=== PATIENT | male | born 1950 | race Caucasian/White ===

== ENCOUNTER 2016-09-23 05:41 | Inpatient (IN) | payer OTHER ==
[2016-09-08 10:32] LABS: ADD DIFF? NO; ADD MORPH? NO; ADD SCAN? NO; ATYPICAL LYMPHOCYTE FLAG 30 (0-99); FRAGMENT RBC FLAG 0 (0-99); HEMATOCRIT 44.2 % (40.0-51.0); HEMOGLOBIN 15.4 g/dL (13.7-17.5); LEFT SHIFT FLG 0 (0-99); LIPEMIA HEMOLYSIS FLAG 90 (0-99); MEAN CELL HEMOGLOBIN 32.3 pg (27.9-34.1); MEAN CELL HEMOGLOBIN CONCENTR. 34.8 g/dL (32.4-36.7); MEAN CELL VOLUME 92.7 fL (81.5-99.8); MEAN PLATELET VOLUME 9.2 fL (8.7-11.7); PLATELET CLUMPS FLAG 0 (0-99); PLATELET COUNT 232 10^3/uL (150-400); RED BLOOD CELL COUNT 4.77 10^6/uL (4.40-6.38); RED CELL DISTRIBUTION WIDTH 12.7 % (11.5-15.2)
[2016-09-08 11:10] LABS: ANION GAP 11 mEq/L (8-16); CALCIUM 9.5 mg/dL (8.5-10.4); CARBON DIOXIDE 25 mEq/l (22-31); CHLORIDE 102 mEq/L (97-110); CREATININE 0.9 mg/dL (0.7-1.3); GLOMERULAR FILTRATION RATE > 60; GLUCOSE 135 mg/dL (70-100); POTASSIUM 3.9 mEq/L (3.5-5.2); SODIUM 138 mEq/L (134-144)
--- NOTE | 2016-09-21 10:14 | GHP ---
[f rep st] PREOP HISTORY AND PHYSICAL DATE OF ADMISSION: 09/23/2016 ADMISSION DIAGNOSIS: Severe right knee degenerative arthritis. HISTORY OF PRESENT ILLNESS: The patient is a 66-year-old male who will be admitted for a right total knee arthroplasty. He has had progressive pain in the right knee over the past several years. He remembers having issues with this knee almost 10 or 12 years ago. He has had 2 previous arthroscopic procedures of the right knee, as well as a left knee ACL reconstruction. The patient's pain has progressed to the point where he is now having daily pain and pain at night. He is using meloxicam as needed, which has become ineffective. His activities have become severely limited, although, he is still trying to work through the pain. He reports stiffness after prolonged sitting. He has also had several previous cortisone injections and Visco supplementation and PRP injections to the right knee without efficacy. Because of his progressive pain and advanced arthritis, he has elected to proceed with a right total knee arthroplasty. PAST MEDICAL HISTORY: Pertinent for hypertension, sleep apnea, depression. No history of MRSA, CAD, NM, DVT, or PE. CURRENT MEDICATIONS: Amlodipine 10 mg, clonazepam 0.5 mg, Flomax 0.4 mg, hydrochlorothiazide 25 mg, venlafaxine 75 mg, vitamin B12. MEDICATION ALLERGIES: He has no known drug allergies. SOCIAL HISTORY: He is retired. Nonsmoker. Moderate alcohol intake. He is . FAMILY HISTORY: Noncontributory. PHYSICAL EXAMINATION: GENERAL: He is a healthy-appearing 66-year-old male. VITAL: Height 5 feet 10 inches tall, weight 210 pounds. BMI 30.1. Blood pressure 134/80. HEENT. Head: Normocephalic, atraumatic. Eyes: PERRLA. Conjunctivae and sclerae are clear. Mouth: He has good oral hygiene without any loose teeth. LUNGS: Clear. HEART: Regular rate and rhythm without murmurs, gallops, or rubs. EXTREMITIES: Pertinent findings are limited to the patient's right knee. He has full knee extension and 110 degrees of flexion. The knee is stable to exam. He has a trace to mild effusion of the right knee. Generalized tenderness of the medial and lateral joint lines. DIAGNOSTIC IMAGING: Recent x-rays taken of the patient's right knee shows advanced degenerative arthritis of both the medial and lateral compartments. IMPRESSION ON ADMISSION: 1. Severe right knee degenerative arthritis. 2. Sleep apnea with the use of CPAP. 3. Treated hypertension. 4. Treated depression. 5. History of cervical spine fusion. In 2017. PLAN: The plan will be for the patient to undergo a right total knee arthroplasty with Dr. Cortez at the [facility] on September 23, 2016. The surgery has been described to the patient including the risks, benefits, and expectations. He understands the importance of postoperative physical therapy. He understands the risk of infection, nerve, or blood vessel injury, or persistent knee pain/stiffness. All his questions have been answered and he consents to surgery. Copy requested to: Michell Gill /[id number]/MODL MTDD
[2016-09-23] MEDS ORDERED: ROPIVACAINE 0.2% 80 MG, EPINEPHrine 0.2 MG, KETOROLAC TROMETHAMINE 30 MG in BAG 0 ML IU ONE (06:00)
[2016-09-23] MEDS ORDERED: ceFAZolin 2 GM/DEXTROSE 100 ML IV ONE (06:00)
[2016-09-23] MEDS ORDERED: FAMOTIDINE 20 MG TAB PO ONE (06:00)
[2016-09-23] MEDS ORDERED: POVIDONE-IODINE 20 ML in SODIUM CL IRRIG SOLUTION 500 ML IRR ONE (06:00)
[2016-09-23] MEDS ORDERED: TRANEXAMIC ACID IV ONE (06:00)
[2016-09-23] MEDS ORDERED: NS IV ONE (06:00)
[2016-09-23] MEDS ORDERED: DEXAMETHASONE 4 MG/ML VIAL IVP ONE (06:00)
[2016-09-23] MEDS ORDERED: ACETAMINOPHEN 325 MG TAB PO ONE (06:00)
[2016-09-23] MEDS ORDERED: LR 1,000 ML IV ONE (06:25)
[2016-09-23] MEDS ORDERED: ceFAZolin 1 GM/5 ML SYR ONE (06:45)
[2016-09-23] MEDS ORDERED: VANCOMYCIN 1 GM VIAL ONE (06:45)
[2016-09-23] MEDS ORDERED: MIDAZOLAM 2 MG/2 ML VIAL IVP ONE (06:55)
--- NOTE | 2016-09-23 06:55 | PDANEPAE ---
ANE History of Present Illness R CHEL ANE Past Medical History - Cardiovascular History Hx Hypertension: Yes Hx Arrhythmias: No Hx Chest Pain: No Hx Coronary Artery / Peripheral Vascular Disease: No Hx CHF / Valvular Disease: No Hx Palpitations: No - Pulmonary History Hx COPD: No Hx Asthma/Reactive Airway Disease: No Hx Recent Upper Respiratory Infection: Yes Hx Oxygen in Use at Home: Yes O2 in Use at Home (L/minute): 2.5LPM Hx Sleep Apnea: Yes Sleep Apnea Screening Result - Last Documented: Positive Pulmonary History Comment: SLEEP APNEA - Neurologic History Hx Cerebrovascular Accident: No Hx Seizures: No Hx Dementia: No - Endocrine History Hx Diabetes: No - Renal History Hx Renal Disorders: No - Liver History Hx Hepatic Disorders: No - Neurological & Psychiatric Hx Hx Neurological and Psychiatric Disorders: No - Cancer History Hx Cancer: Yes Cancer History Comment: SQUAMOUS TORIBIO CARCINOMA 2006 - Congenital Disorder History Hx Congenital Disorders: No - GI History Hx Gastrointestinal Disorders: No - Chronic Pain History Chronic Pain: Yes (RIGHT KNEE) - Surgical History Prior Surgeries: BILATERAL EYELIDS SURGERY 2014. NECK SURGERY (C3-4FUSION) 2014. RIGHT KNEE ARTHROSCOPY 2014. LEFT KNEE MENISCUS REPAIR X 2 AND ACL REPAIR. ABD HERNIA SURGERY X 5. INGUINAL HERNIA SURGERY X 1. LEFT SHOULDER SURGERY X1. LOWER BACK SURGERY ANE Review of Systems - Exercise capacity Exercise capacity: >=4 METS METS (RN): 4 METS ANE Patient History - Allergies Allergies/Adverse Reactions: No Known Allergies Allergy (Unverified 08/28/16 13:09) - Home Medications Home Medications: Aspirin [Aspirin 81mg (*)] 81 mg PO DAILY 08/28/16 [Last Taken Unknown] Benazepril HCl [Lotensin] 40 mg PO DAILY 08/28/16 [Last Taken Unknown] Herbals/Supplements -Info Only 1 ea PO DAILY 08/28/16 [Last Taken Unknown] Hydrochlorothiazide [HCTZ (*)] 25 mg PO DAILY 08/28/16 [Last Taken Unknown] Loratadine [Claritin] 10 mg PO DAILY PRN 08/28/16 [Last Taken Unknown] Meloxicam 15 mg PO DAILY 08/28/16 [Last Taken Unknown] Multivitamins [Multivitamin (*)] 1 each PO DAILY 08/28/16 [Last Taken Unknown] [place]-3 Fatty Acids [Fish Oil 1000 mg (*)] 1,000 mg PO DAILY 08/28/16 [Last Taken Unknown] Tamsulosin HCl [Flomax 0.4 MG (*)] 0.4 mg PO HS 08/28/16 [Last Taken Unknown] Venlafaxine HCl [Effexor] 75 mg PO DAILY 08/28/16 [Last Taken Unknown] amLODIPine BESYLATE [Norvasc 10 mg (*)] 10 mg PO DAILY 08/28/16 [Last Taken Unknown] clonazePAM [Klonopin (*)] 0.5 mg PO HS 08/28/16 [Last Taken Unknown] - NPO status NPO Since - Liquids (Date): 09/22/16 NPO Since - Liquids (Time): 19:00 NPO Since - Solids (Date): 09/22/16 NPO Since - Solids (Time): 19:00 - Smoking Hx Smoking Status: Never smoked ANE Labs/Vital Signs - Labs Result Diagrams: 09/08/16 10:15 09/08/16 10:15 - Vital Signs Blood Pressure: 122/81 Heart Rate: 72 Respiratory Rate: 15 O2 Sat (%): 92 Height: 177.8 cm Weight: 92.986 kg ANE Physical Exam - Airway Neck exam: FROM Mallampati Score: Class 2 Mouth exam: normal dental/mouth exam - Pulmonary Pulmonary: no respiratory distress - Cardiovascular Cardiovascular: regular rate and rhythym - ASA Status ASA Status: II ANE Anesthesia Plan Anesthesia Plan: MAC, spinal Regional Anesthesia: adductor canal FNB
--- NOTE | 2016-09-23 07:00 | PDHPUP ---
History & Physical Update H&P update statement: This history and physical update is based on an assessment of the patient which was completed after admission or registration (within 24 hours), but prior to the surgery/procedure. H&P update: H&P reviewed & patient examined, no change in patient's condition since H&P completed
[2016-09-23] MEDS ORDERED: LIDOCAINE 2% 5 ML SDV ONE (07:09)
[2016-09-23] MEDS ORDERED: ROPIVACAINE HCL 150 MG/30 ML INJ ONE (07:09)
[2016-09-23] MEDS ORDERED: PROPOFOL/EMULSION 500 MG/50 ML BOTTLE IV ONE (07:09)
--- NOTE | 2016-09-23 07:45 | POSTANESTH ---
Post Anesthetic Evaluation Cardiovascular Status: Normal, Stable, Similar to Pre-Op Cond Respiratory Status: Similar to Pre-op Cond. Level of Consciousness/Mental Status: Can Participate in Eval, Mildly Sleepy, Arousable Pain Control: Adequate, Prn Tx Ordered Nausea/Vomiting Control: Adequate, Prn Tx Ordered Complications Possibly Related to Anesthesia: None Noted (doing well)
[2016-09-23] MEDS ORDERED: PROPOFOL 200 MG/20 ML VIAL ONE (08:40)
[2016-09-23] MEDS ORDERED: NON-FORMULARY NEW DRUG (Loratadine [Claritin] 10 MG) PO PRN (09:05)
[2016-09-23] MEDS ORDERED: oxyCODONE IR 5 MG TAB PO PRN (09:07)
[2016-09-23] MEDS ORDERED: TEMAZEPAM 15 MG CAP PO PRN (09:07)
[2016-09-23] MEDS ORDERED: CYCLOBENZAPRINE 10 MG TAB PO PRN (09:07)
[2016-09-23] MEDS ORDERED: MAGNESIUM HYDROXIDE 30 ML UDCUP PO PRN (09:07)
[2016-09-23] MEDS ORDERED: LACTULOSE 20 GM/30 ML UDCUP PO PRN (09:07)
[2016-09-23] MEDS ORDERED: PHARMACY PAIN CONSULT 1 EA MISC PRN (09:07)
[2016-09-23] MEDS ORDERED: ONDANSETRON DISINTEGRATING 4 MG TAB PO PRN (09:07)
[2016-09-23] MEDS ORDERED: KETOROLAC 30 MG/1 ML SDV IVP PRN (09:07)
[2016-09-23] MEDS ORDERED: DIPHENOXYLATE/ATROPINE LOMOTIL 1 TAB PO PRN (09:07)
[2016-09-23] MEDS ORDERED: NS 500 ML IV PRN (09:07)
[2016-09-23] MEDS ORDERED: PROMETHAZINE HCL 25 MG SUPPR PR PRN (09:07)
[2016-09-23] MEDS ORDERED: diphenhydrAMINE 25 MG CAP PO PRN (09:07)
[2016-09-23] MEDS ORDERED: POLYETHYLENE GLYCOL 3350 17 GM PKT PO PRN (09:07)
[2016-09-23] MEDS ORDERED: PROMETHAZINE HCL 25 MG/ML INJ IVP PRN (09:07)
[2016-09-23] MEDS ORDERED: ONDANSETRON 4 MG/2 ML VIAL IVP PRN (09:07)
[2016-09-23] MEDS ORDERED: BISACODYL 10 MG SUPP PR PRN (09:07)
[2016-09-23] MEDS ORDERED: traMADol 50 MG TAB PO PRN (09:07)
[2016-09-23] MEDS ORDERED: LR 1,000 ML IV SCH (09:30)
[2016-09-23] MEDS ORDERED: CETIRIZINE 10 MG TAB PO PRN (09:31)
--- NOTE | 2016-09-23 10:29 | GOP ---
[f rep st] OPERATIVE REPORT DATE OF OPERATION: 09/23/2016 SURGEON: Genaro Cortez MD NAVAL DESIGNER: Jose J Cai and Blas Ruiz CFA. ANESTHESIA: Combination of Marcaine, spinal, and IV sedation, and adductor canal block. ANESTHESIOLOGIST: Adriel Cabrera MD. PREOPERATIVE DIAGNOSIS: Right knee severe degenerative arthritis. POSTOPERATIVE DIAGNOSIS: Right knee severe degenerative arthritis. PROCEDURE PERFORMED: 09/23/2016, right total knee arthroplasty. Stevens and Nephew Journey 2, cement ed, posterior stabilized. FINDINGS: ESTIMATED BLOOD LOSS: The estimated blood loss following placement of the tourniquet was about 100 cc. DESCRIPTION OF PROCEDURE: The patient was given 2 g of IV Ancef preoperatively, within 60 minutes o f surgery. He also received IV tranexamic acid at a dose of 10 mg/kg. He was placed on the operati ng room table and given spinal anesthesia with Marcaine by Dr. Cabrera. He was then placed supine and given IV sedation. A Javed catheter was not used. He wore a JAMARI stocking and SCD on the nonope rative leg. His right lower extremity was prepped with ChloraPrep from the upper thigh tourniquet t o the tips of the toes. It was draped free using sterile sheets, stockinette, and Ioban plastic adh esive drapes. The lower leg was wrapped with compressive Coban. The leg was exsanguinated with kehinde vation and a 6-inch compressive wrap, and the tourniquet was inflated to 250 mmHg. The [employer] Organization time-out was performed to verify the correct patient identity and the correct surgical side. The [place] time-out was also performed. The [employer] leg holding device was sterilely attached to the operating room table and used throughout the procedure to help position the knee. A straight midline incision was made centered on the lee lla. Subcutaneous tissues were sharply divided, and hemostasis was obtained using electrocautery. A medial subcutaneous flap was developed and the capsule and synovium were opened in medial parapate llar fashion. Extensive degenerative changes were present, particularly in the lateral compartment and patellofemoral joint. He was eroded down to subchondral bone on the lateral tibial plateau and the lateral femoral condyle. The medial capsule and periosteum were elevated off the rim of the med ial tibial plateau all the way around to the posteromedial corner. His medial collateral ligament w as lightly released to balance the medial side of the knee. In order to improve exposure, his patella was prepared first. The original thickness of the patella was measured. Peripheral osteophytes were removed. I cut a flat surface on the back of the onur bradley. It was sized for a 38 mm resurfacing component. I removed enough bone from the patella such ehsan t the remaining bone, plus the thickness of the patellar component recreated the original thickness of the patella. The composite thickness was 22 mm. The intramedullary alignment guide system was used to set up the distal femoral cut. The distal fem ur was cut in 5 degrees of valgus. Because of a mild preoperative flexion contracture, I made a +2 mm cut on the distal femur. The sizing jig was used to determine proper femoral sizing. He was a t rue size 5 without an anterior shift. The 5 in 1 cutting block was applied, and the anterior and po sterior condylar cuts and chamfer cuts were made. The final jig was used to remove the central port ion of the distal femur to accommodate the posterior stabilized femoral component. I was careful to determine proper rotation by referencing off Whitesides line. Each cut was checked for accuracy be fore and after it was made. The femur was sized for a size 5 posterior stabilized component. Next, the tibia was prepared. The proximal tibial cut was made using the extramedullary alignment g uide system. The cut was made in a few degrees of posterior slope. I was careful to achieve proper varus valgus alignment and proper rotation. The posterior compartment was cleared of meniscal remn ants. Osteophytes were removed from the back of the femoral condyles. I checked the flexion extens ion gaps, and they were equal, balanced and rectangular. The tibia was sized for a size 5 component. With the trial components in place, I selected a 10 mm posterior stabilized polyethylene tibial insert. The knee came to full extension and flexed to 130 degrees. There was no overstuffing in flexion. The collateral ligaments were stable and balanced i n 90 degrees of flexion and full extension. The trial patellar button was applied, and patellar tra cking was checked. It was excellent without any digital pressure. 40 mL of joint anesthetic cocktail were injected into the posterior capsule, the periarticular struc tures, the quadriceps muscle and tendon areas, and the subcutaneous tissues along the skin edges. A second dose of IV tranexamic acid was given at a dose of 10 mg/kg. The surfaces were prepared for cementing. They were carefully cleaned with the pulsating lavage irr igation and thoroughly dried. The CarboJet device was used to blow dry the cancellous surfaces. A double batch of high viscosity methylmethacrylate cement with 2 g of added powdered vancomycin was m ixed. While it was still in a semi liquid state, all [address] components were cemented in place. Excess c ement was removed before it hardened. The 10 mm trial tibial insert was re-tried and was the proper thickness. The actual component was i nserted and locked into place. The knee was thoroughly irrigated 1 final time with a dilute Betadin e solution. The tourniquet was deflated and the total tourniquet time was 46 minutes. The vastus medialis portion of the extensor mechanism was repaired with several interrupted figure-o f-eight #2 FiberWire sutures. The capsule and synovium were closed first with multiple interrupted [id number] 0 PDS sutures, followed by a running #2 barbed Ethicon Stratafix PDO suture. Subcut aneous tissues were closed with a running 0 barbed Ethicon StrataFix Monoderm suture. The skin was closed with a running 3-0 barbed Ethicon Stratafix Monoderm subcuticular suture. The skin was jimy d with half-inch Steri-Strips. The wound was covered with a Xeroform gauze and flat 4 x 4's, and th e knee was wrapped with Kerlix and 6-inch compressive wrap. A long-leg JAMARI stocking and SCD were ap plied followed by the cooling device. The patient wore a stocking and SCD on the opposite leg durin g the procedure. IMPLANTS: I used a size 5 cemented Stevens and Nephew Oxinium posterior stabilized femoral component, a size 5 cemented tibial base plate, a 10 mm posterior stabilized tibial insert and a 38 mm cemente d round all-polyethylene resurfacing patellar component. COUNTS: The sponge and needle count were correct on 2 occasions. He was awakened from anesthesia, transferred to his [facility] and taken to PACU in satisfactor y condition. There were no intraoperative complications. In the PACU, for additional postoperative pain control, Dr. Caberra performed an adductor canal blo ck. Jose J Cai and Blas Ruiz acted as surgical assistants. Their assistance was a eyal peterson. /[id number]/MODL
[2016-09-23] MEDS ORDERED: ACETAMINOPHEN 325 MG TAB PO SCH (12:00)
[2016-09-23] MEDS ORDERED: TAMSULOSIN HCL 0.4 MG CAP PO SCH (12:00)
[2016-09-23 13:00] VITALS: RESP 18
[2016-09-23] MEDS ORDERED: ceFAZolin 2 GM/DEXTROSE 100 ML IV SCH (14:00)
[2016-09-23] MEDS ORDERED: TRANEXAMIC ACID 650 MG TAB PO SCH (15:00)
[2016-09-23 15:27] VITALS: BP 107/69; PULSE 72; TEMP 98.6; O2SAT 90
[2016-09-23] MEDS ORDERED: SENNOSIDES/DOCUSATE SODIUM TAB PO SCH (21:00)
[2016-09-23] MEDS ORDERED: FAMOTIDINE 20 MG TAB PO SCH (21:00)
[2016-09-23] MEDS ORDERED: ASPIRIN 325 MG TAB PO SCH (21:00)
[2016-09-23] MEDS ORDERED: clonazePAM 0.5 MG TAB PO SCH (21:00)
--- NOTE | 2016-09-24 07:40 | SOAPPROG ---
SOAP Progress Note Assessment/Plan: Assessment: Plan: Objective: Vital Signs Temp Pulse Resp BP Pulse Ox 37.0 C 72 18 107/69 90 L 09/23/16 15:26 09/23/16 15:26 09/23/16 15:26 09/23/16 15:26 09/23/16 15:26 Laboratory Results 09/08/16 10:15 09/08/16 10:15 09/23/16 09/24/16 09/25/16 05:59 05:59 05:59 Intake Total 2059 Output Total 100 Balance 1960 ICD10 Worksheet Patient Problems: Problems Problem Status Onset Osteoarthritis of right knee Acute
--- NOTE | 2016-09-24 07:57 | GDS ---
[f rep st] DISCHARGE SUMMARY ADMISSION DIAGNOSIS: Right knee severe degenerative arthritis. DISCHARGE DIAGNOSIS: Right knee severe degenerative arthritis. OPERATION PERFORMED: September 23, 2016: A right total knee arthroplasty. POSTOPERATIVE COMPLICATIONS: None. CONDITION ON DISCHARGE: Improved. DESCRIPTION OF HOSPITAL COURSE: The patient was admitted to the hospital on the morning of surgery. His admission CBC was normal. The same day, under A combination of Marcaine, spinal anesthesia, a nd IV sedation, he underwent a right total knee arthroplasty. Postoperatively, he was treated with multimodal DVT prophylaxis, including aspirin. He was seen by Physical Therapy, and made good progr ess with ambulation and stairs. He was discharged later that day. He was independent IN walking. DISPOSITION: The patient was discharged to his home. I will see him back in the office on September h. He has prescriptions for oxycodone and tramadol for pain control. He will go to outpatient phys ical therapy. Continue aspirin 325 mg p.o. daily for 21 days. Use JAMARI stockings for 1 week. If th ere are any problems, he is to call me at the office. /[id number]/MODL
[2016-09-24] MEDS ORDERED: HYDROCHLOROTHIAZIDE 25 MG TAB PO SCH (09:00)
[2016-09-24] MEDS ORDERED: VENLAFAXINE HCL 75 MG TAB PO SCH (09:00)
[2016-09-24] MEDS ORDERED: BENAZEPRIL HCL 20 MG TAB PO SCH (09:00)
[2016-09-24] MEDS ORDERED: VENLAFAXINE HCL 37.5 MG TAB PO SCH (09:00)
[2016-09-24] MEDS ORDERED: FERROUS SULFATE 140 MG TAB.ER PO SCH (09:00)
== END 2016-09-23 17:45 | disposition home or self-care (01) | DRG 470 ==
LOC: F3N 05:41
PROVIDERS: ADMIT Orthopaedic Surgery; ATTEND Orthopaedic Surgery
PROC: 0SRC0J9 Replacement of Right Knee Joint with Synthetic Substitute, Cemented, Open Approach (ICD-10-PCS; principal; 2016-09-23 07:15)
DX: M17.11 Unilateral primary osteoarthritis, right knee (principal); I10 Essential (primary) hypertension; G47.30 Sleep apnea, unspecified; F32.9 Major depressive disorder, single episode, unspecified; Z98.1 Arthrodesis status
CPT/HCPCS: 97110-GP; 97161-GP; 97165-GO; C1713; J0171; J0690; J1100; J1885; J2250; J2704; J2795; J3370

== ENCOUNTER → 2016-11-04 | Outpatient (CLI) | payer OTHER | LOC: FIMAGING 15:36 | PROVIDERS: ATTEND Orthopaedic Surgery | DX: I82.441 Acute embolism and thrombosis of right tibial vein (principal); I82.890 Acute embolism and thrombosis of other specified veins ==

== ENCOUNTER 2017-04-20 05:47 | Observation (INO) | payer OTHER ==
--- NOTE | 2017-04-08 11:21 | GHP ---
[f rep st] PREOP HISTORY AND PHYSICAL DATE OF ADMISSION: 04/20/2017 PROBLEM: Left knee arthritis. HISTORY OF PRESENT ILLNESS: The patient is a 66-year-old man admitted for a left total knee arthropl asty. He has had progressive pain in both knees over the last couple of years. He has had some trou ble with his left knee for the past 10 or 12 years. He has had a previous left knee ACL reconstructi on. His pain has progressed to the point where he is having daily pain and night pain. He has tried meloxicam in the past which has become ineffective. His activities are now very limited. He has st iffness after prolonged sitting. He has tried cortisone injections and viscosupplementation injectio ns. He underwent a right total knee arthroplasty on 09/23/2016, with a good result. He will now und ergo a left total knee arthroplasty. PAST MEDICAL HISTORY: He is treated for hypertension, sleep apnea and depression. No history of cor onary artery disease. He had a DVT in the right leg following his right total knee arthroplasty. He was treated with Coumadin for 6 weeks. CURRENT MEDICATIONS: Amlodipine 10 mg per day, clonazepam 0.5 mg at bedtime for restless leg syndrom e, Flomax 0.4 mg per day, hydrochlorothiazide 25 mg per day, venlafaxine 75 mg per day. DRUG ALLERGIES: None. SOCIAL HISTORY: The patient is retired. He does not smoke cigarettes and occasionally drinks alcoho l. He is . PHYSICAL EXAMINATION: GENERAL: He is an alert, healthy-appearing man. Height 5 feet 10 inches. We ight 210 pounds. BMI 30.1. EYES: Conjunctivae and sclerae are clear. Pupils are round and reactiv e. MOUTH: Good oral hygiene. No loose teeth. CHEST: Clear. HEART: Regular rhythm, no murmurs. EXTREMITIES: Pertinent findings are limited to his left knee. He has increased valgus alignment. He lacks a few degrees of full extension and flexes to 110 degrees. He has a small effusion. He is tender on both the medial and lateral joint lines. IMAGING STUDIES: Films from 06/07/2016, show advanced degenerative arthritis. He is [id number] in the lateral compartment. Increased valgus alignment is present. Moderate patellofemoral arthritis. There is no residual hardware from his previous ACL reconstruction. IMPRESSION ON ADMISSION: 1. Left knee advanced degenerative arthritis, primarily involving the lateral compartment with valgu s deformity. He will undergo a left total knee arthroplasty. 2. Six months status post right total knee arthroplasty with a good result. 3. History of deep venous thrombosis in the right leg following his total knee replacement. 4. Treatment for hypertension. 5. Treatment for depression. He is a high risk for recurrent deep venous thrombosis. Postoperatively, I will start him on Coumadi n and also treating with Lovenox for 4 or 5 days until his Coumadin level is at a therapeutic level. He will probably be on Coumadin for 6 or 8 weeks. The surgery has been described to him, including the risks, complications, expectations, and recovery time. I have advised him that with bilateral procedures, there can be mild [id number] differences during the recovery and with the final result. All his questions have been answered, and he consent s to surgery. /[id number]/MODL
[~2017-04-20 05:47] MED LIST: NS IV ONE; TRANEXAMIC ACID IV ONE
[2017-04-20] MEDS ORDERED: ROPIVACAINE 0.2% 80 MG, EPINEPHrine 0.2 MG, KETOROLAC TROMETHAMINE 30 MG in SYRINGE 0 ML IU ONE (06:00)
[2017-04-20] MEDS ORDERED: TRANEXAMIC ACID IV ONE (06:00)
[2017-04-20] MEDS ORDERED: POVIDONE-IODINE 20 ML in SODIUM CL IRRIG SOLUTION 500 ML IRR ONE (06:00)
[2017-04-20] MEDS ORDERED: NS IV ONE (06:00)
[2017-04-20] MEDS ORDERED: DEXAMETHASONE 4 MG/ML VIAL IVP ONE (06:17)
[2017-04-20] MEDS ORDERED: ceFAZolin 2 GM/SWFI 2 GM/20 ML SYR IVP ONE (06:17)
[2017-04-20] MEDS ORDERED: FAMOTIDINE 20 MG TAB PO ONE (06:17)
[2017-04-20] MEDS ORDERED: ACETAMINOPHEN 325 MG TAB PO ONE (06:17)
[2017-04-20] MEDS ORDERED: GABAPENTIN 300 MG CAP PO ONE (06:17)
[2017-04-20] MEDS ORDERED: LR 1,000 ML IV ONE (06:18)
[2017-04-20] MEDS ORDERED: LIDOCAINE 1% 2 ML INJ ONE (06:20)
[2017-04-20] MEDS ORDERED: VANCOMYCIN 1 GM VIAL ONE (06:48)
[2017-04-20] MEDS ORDERED: ceFAZolin 1 GM/5 ML SYR ONE (06:48)
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
[2017-04-20] MEDS ORDERED: MIDAZOLAM 2 MG/2 ML VIAL ONE (07:08)
[2017-04-20] MEDS ORDERED: MIDAZOLAM 2 MG/2 ML VIAL IVP ONE (07:10)
[2017-04-20] MEDS ORDERED: PROPOFOL/EMULSION 500 MG/50 ML BOTTLE IV ONE ×2 (07:14→08:12)
[2017-04-20] MEDS ORDERED: PHENYLEPHRINE HCL 100 MCG/ML SYR ONE (08:16)
[2017-04-20] MEDS ORDERED: DEXAMETHASONE 4 MG/ML VIAL ONE (08:47)
[2017-04-20] MEDS ORDERED: ROPIVACAINE HCL 150 MG/30 ML INJ ONE (08:47)
--- NOTE | 2017-04-20 08:53 | POSTOPPROG ---
Post Op Note Date of Operation: 04/20/17 Surgeon: Genaro Cortez Fluid Dynamicist: Glenn Anesthesiologist: Adams Mauro Anesthesia: IV Sedation, Spinal Post-op Diagnosis: Left hip advanced degenerative arthritis Procedure: Left total hip arthroplasty Inf/Abcess present in the surg proc area at time of surgery?: No EBL: 50-100
[2017-04-20] MEDS ORDERED: NON-FORMULARY NEW DRUG (Loratadine [Claritin] 10 MG) PO PRN (09:09)
[2017-04-20] MEDS ORDERED: BISACODYL 10 MG SUPP PR PRN (09:10)
[2017-04-20] MEDS ORDERED: oxyCODONE IR 5 MG TAB PO PRN (09:10)
[2017-04-20] MEDS ORDERED: LACTULOSE 20 GM/30 ML UDCUP PO PRN (09:10)
[2017-04-20] MEDS ORDERED: NS 500 ML IV PRN (09:10)
[2017-04-20] MEDS ORDERED: DIPHENOXYLATE/ATROPINE LOMOTIL 1 TAB PO PRN (09:10)
[2017-04-20] MEDS ORDERED: PROMETHAZINE HCL 25 MG SUPPR PR PRN (09:10)
[2017-04-20] MEDS ORDERED: ONDANSETRON 4 MG/2 ML VIAL IVP PRN ×2 (09:10→09:55)
[2017-04-20] MEDS ORDERED: MAGNESIUM HYDROXIDE 30 ML UDCUP PO PRN (09:10)
[2017-04-20] MEDS ORDERED: ONDANSETRON DISINTEGRATING 4 MG TAB PO PRN (09:10)
[2017-04-20] MEDS ORDERED: TEMAZEPAM 15 MG CAP PO PRN (09:10)
[2017-04-20] MEDS ORDERED: CYCLOBENZAPRINE 10 MG TAB PO PRN (09:10)
[2017-04-20] MEDS ORDERED: PROMETHAZINE HCL 25 MG/ML INJ IVP PRN (09:10)
[2017-04-20] MEDS ORDERED: POLYETHYLENE GLYCOL 3350 17 GM PKT PO PRN (09:10)
[2017-04-20] MEDS ORDERED: KETOROLAC 30 MG/1 ML SDV IVP PRN (09:10)
[2017-04-20] MEDS ORDERED: traMADol 50 MG TAB PO PRN (09:10)
[2017-04-20] MEDS ORDERED: diphenhydrAMINE 25 MG CAP PO PRN (09:10)
[2017-04-20] MEDS ORDERED: LR 1,000 ML IV SCH (09:30)
--- NOTE | 2017-04-20 09:42 | GOP ---
[f rep st] OPERATIVE REPORT DATE OF OPERATION: 04/20/2017 SURGEON: Genaro Cortez MD GRANULIZING MACHINE OPERATOR: 1. Raffaele Cai PA-C. 2. Blas Ruiz CFA. ANESTHESIA: Marcaine spinal and IV sedation, and adductor canal block. ANESTHESIOLOGIST: Van Mauro DO PREOPERATIVE DIAGNOSIS: Left knee severe degenerative arthritis. POSTOPERATIVE DIAGNOSIS: Left knee severe degenerative arthritis. PROCEDURE PERFORMED: Left total knee arthroplasty, cemented, Stevens and Nephew Journey II, posterior stabilized. FINDINGS: DESCRIPTION OF PROCEDURE: The patient was given 2 grams of IV Ancef preoperatively within 60 minutes of surgery. He also received IV tranexamic acid at a dose of 10 mg/kg. He was placed on the operating room table and given spinal anesthesia with Marcaine by Dr. Mauro. He was then placed supine and given IV sedation. A Javed catheter was not used. He wore a JAMARI stocking and SCD on the nonoperative leg. His left lower extremity was prepped with ChloraPrep from the upper thigh tourniquet to the tips of the toes. It was draped free using sterile sheets, stockinette, and Ioban plastic adhesive drape. The lower leg was wrapped with compressive Coban. The leg was exsanguinated with elevation and a 6-inch compressive wrap and the pneumatic tourniquet was inflated to 250 mmHg. The World [employer] Organization time-out was performed to verify the correct patient identity and the correct surgical side and site. The [place] time-out was also performed. The Therapydiaayo leg holding device was sterilely attached to the operating room table and used throughout the procedure to help position the knee. A straight midline incision made centered on the patella. Subcutaneous tissues were sharply divided and hemostasis was obtained using electrocautery. A medial subcutaneous flap was developed, and the capsule and synovium were opened in a medial parapatellar fashion. Extensive degenerative changes were present throughout the knee. The medial capsule and periosteum were elevated off the rim of the medial tibial plateau all the way around to the posteromedial corner. He had a nonabsorbable suture in the anteromedial tibia from a previous ACL reconstruction. His medial collateral ligament was released enough to balance the medial side of the knee. In order to improve exposure, his patella was prepared first. The original thickness of the patella was measured. Peripheral osteophytes were removed. I cut a flat surface on the back of the patella. It was sized for a 38 mm component. I removed enough bone from the patella, such that the remaining bone , plus the thickness of the patellar component recreated the original thickness of the patella. The composite thickness was 24 mm. The intramedullary alignment guide system was used to set up the distal femoral cut. The distal femur was cut in 5 degrees of valgus. Because of a slight preoperative flexion contracture, I made a +2 mm cut on the distal femur. The sizing jig was used to determine proper femoral sizing. He was a true size 5 without a shift. The 5-in-1 cutting block was applied, and the anterior and posterior condylar cuts and chamfer cuts were made. The final jig was used to remove the central portion of the distal femur to accommodate the posterior stabilized femoral component. I was careful to determine proper rotation by referencing off Whitesides line and other bony landmarks. Each cut was checked for accuracy before and after it was made. The femur was sized for a size 5 posterior stabilized component. Next, the tibia was prepared. The proximal tibial cut was made using the extramedullary alignment guide system. The cut was made in a few degrees of posterior slope. I was careful to achieve proper varus-valgus alignment and proper rotation. The posterior compartment was cleared of meniscal remnants. Osteophytes were removed the back of the femoral condyles. I checked the flexion extension gaps, and they were equal, balanced, and rectangular. The tibia was sized for a size 6 component. With the trial components in place, I selected a 10 mm polyethylene posterior stabilized tibial insert. The knee came to full extension and flexed to 130 degrees. There was no overstuffing in flexion. His collateral ligaments were stable and balanced in 90 degrees of flexion and full extension. The trial patellar button was applied and tracking was checked. Tracking was excellent without any digital pressure. 40 mL of the joint anesthetic cocktail were injected into the posterior capsule , the periarticular structures, and the subcutaneous tissues around the skin edges. A second dose of IV tranexamic acid was given at a dose of 10 mg/kg. The surfaces were prepared for cementing. They were carefully cleaned with the pulsating lavage irrigation and thoroughly dried. The CarboJet device was used to blow dry the cancellous surfaces. A double batch of high viscosity methylmethacrylate cement with 2 grams of powdered vancomycin added was mixed. While it was still in a doughy state, all [address] components were cemented in place. Excess cement was removed before it hardened. The 10 mm trial tibial insert was re-tried and was the proper thickness. The actual component was inserted and locked into place. The knee was thoroughly irrigated 1 final time with a dilute Betadine solution. The tourniquet was deflated and the total tourniquet time was 49 minutes. The vastus medialis portion of the extensor mechanism was repaired with several interrupted [id number] #2 FiberWire sutures. The capsule and synovium were closed first with multiple interrupted [id number] 0-PDS sutures, followed by a running #2 barbed Ethicon Stratafix PDO suture. The subcutaneous tissues were closed with a running 0 barbed Ethicon Stratafix Monoderm suture. The skin was closed with a running 3-0 barbed Ethicon Stratafix Monoderm subcuticular suture. The skin was sealed with half-inch Steri-Strips. The wound was covered with a large Mepilex waterproof dressing and a 6-inch compressive wrap. A long-leg JAMARI stocking and SCD were applied, followed by the cooling device. The patient wore a stocking and SCD on the opposite leg during the procedure. I used a size 5 cemented Stevens and Nephew Oxinium posterior stabilized femoral component, a size 6 cemented tibial base plate, a 10 mm posterior stabilized tibial insert, and a 38 mm cemented round all-polyethylene resurfacing patellar component. The estimated blood loss following deflation of the tourniquet was approximately 100 cc. The sponge and needle count were correct on 2 occasions. The patient was awakened from anesthesia, transferred to the [facility] and taken to PACU in satisfactory condition. There were no recognized intraoperative complications. In the PACU, for additional postoperative pain control, Dr. Mauro performed an adductor canal block. Jose J Cai and Blas Ruiz acted as surgical assistants. Their assistance was a medical necessity for safe completion of the procedure. Copy requested to: Dr. Shay Coley /[id number]/MODL MTDD
[2017-04-20] MEDS ORDERED: ACETAMINOPHEN 500 MG TAB PO PRN (09:55)
[2017-04-20] MEDS ORDERED: NALOXONE HCL 0.4 MG/ML INJ IVP PRN (09:55)
[2017-04-20] MEDS ORDERED: OXYCODONE/APAP 5/325 TAB PO PRN (09:55)
[2017-04-20] MEDS ORDERED: HYDROCODONE/APAP 5/325 TAB PO PRN (09:55)
[2017-04-20] MEDS ORDERED: LR 500 ML IV PRN (09:55)
--- NOTE | 2017-04-20 09:59 | POSTANESTH ---
Post Anesthetic Evaluation Cardiovascular Status: Normal, Stable Respiratory Status: Normal, Stable Level of Consciousness/Mental Status: Can Participate in Eval Pain Control: Adequate, Prn Tx Ordered Nausea/Vomiting Control: Adequate, Prn Tx Ordered Complications Possibly Related to Anesthesia: None Noted
[2017-04-20 10:54] VITALS: RESP 16
[2017-04-20] MEDS ORDERED: ACETAMINOPHEN 325 MG TAB PO SCH (12:00)
[2017-04-20 14:30] VITALS: BP 131/92; PULSE 100; TEMP 98; O2SAT 94
[2017-04-20] MEDS ORDERED: TEARS/DEXTRAN 70/HYPROMELLOSE 15 ML OPHT.BTL EACHEYE PRN (14:38)
--- NOTE | 2017-04-20 14:50 | SOAPPROG ---
SOAP Progress Note Assessment/Plan: Assessment: Pt. cleared by PT/OT for ambulation. Good pain control. VSS. Dressing clean and dry. Plan: Discharge to home later today. 04/20/17 14:49 Objective: Vital Signs Temp Pulse Resp BP Pulse Ox 36.7 C 100 16 131/92 H 94 04/20/17 14:29 04/20/17 14:29 04/20/17 14:29 04/20/17 14:29 04/20/17 14:29 04/19/17 04/20/17 04/21/17 05:59 05:59 05:59 Intake Total 1320 Output Total 50 Balance 1270 ICD10 Worksheet Patient Problems: Problems Problem Status Onset Osteoarthritis of left knee Acute Osteoarthritis of right knee Acute
[2017-04-20] MEDS ORDERED: ceFAZolin 2 GM/DEXTROSE 100 ML IV SCH (15:00)
[2017-04-20] MEDS ORDERED: WARFARIN SODIUM 7.5 MG TAB PO SCH (16:00)
--- NOTE | 2017-04-20 17:10 | ASDISCHSUM ---
Discharge Information Plan Status:Home with No Needs Medically Cleared to Leave: Discharge Date:04/20/2017 04:38 PM CM D/C Disposition:Home, Routine, Self-Care ADT D/C Disposition:Home, Routine, Self-Care Projected Discharge Date:04/20/2017 04:38 PM Transportation at D/C: Discharge Delay Reason: Follow-Up Date:04/20/2017 04:38 PM Discharge Slot: Final Diagnosis: Placement Information Patient Contact Information Contact Name:ZACHERY Relationship: Address:[address] City:[place] Alternate Phone: [facility]/Zip Code:[place] [address] Email: Financial Information Financial Class: Primary Plan Desc:MEDICARE OUTPATIENT Primary Plan Number:[id number] Secondary Plan Desc:[employer]MO OPEN ACC LOCAL Secondary Plan Number:[id number] Assessment Information Intervention Information Intervention Type:*Incorrect Registration Date of Service:04/20/2017 12:20 PM Patient Type:Inpatient Staff Member:SHAYY Rodríguez Courtney Hours: Discipline: Severity: Comment:
[2017-04-20] MEDS ORDERED: FAMOTIDINE 20 MG TAB PO SCH (21:00)
[2017-04-20] MEDS ORDERED: clonazePAM 0.5 MG TAB PO SCH (21:00)
[2017-04-20] MEDS ORDERED: SENNOSIDES/DOCUSATE SODIUM TAB PO SCH (21:00)
[2017-04-20] MEDS ORDERED: TAMSULOSIN HCL 0.4 MG CAP PO SCH (21:00)
[2017-04-21] MEDS ORDERED: CETIRIZINE 10 MG TAB PO SCH (09:00)
[2017-04-21] MEDS ORDERED: BENAZEPRIL HCL 20 MG TAB PO SCH (09:00)
[2017-04-21] MEDS ORDERED: HYDROCHLOROTHIAZIDE 25 MG TAB PO SCH (09:00)
[2017-04-21] MEDS ORDERED: VENLAFAXINE XR 75 MG CAP PO SCH (09:00)
[2017-04-21] MEDS ORDERED: VENLAFAXINE HCL 75 MG TAB PO SCH (09:00)
[2017-04-21] MEDS ORDERED: ENOXAPARIN 40 MG/0.4 ML SYR SC SCH (09:00)
[2017-04-21] MEDS ORDERED: FERROUS SULFATE 140 MG TAB.ER PO SCH (09:00)
== END 2017-04-20 16:38 | disposition home or self-care (01) ==
LOC: INTOOBSV 05:47 → F3N 05:47
PROVIDERS: ADMIT Orthopaedic Surgery; ATTEND Orthopaedic Surgery
PROC: 0SRD0JZ Replacement of Left Knee Joint with Synthetic Substitute, Open Approach (ICD-10-PCS; principal; 2017-04-20 07:15)
DX: M17.12 Unilateral primary osteoarthritis, left knee (principal)
CPT/HCPCS: 27447; 73560; 77073; 88311; 97110; 97161; 97165; C1713; C1776; G8978; G8979; G8980; G8987; G8988; G8989; J0171; J0690; J1100; J1885; J2250; J2370; J2704; J2795; J3370